=== PATIENT | male | born 2000 | race Caucasian/White ===

== ENCOUNTER 2024-05-10 22:38 | Emergency (ER) | payer SELFPAY ==
[~2024-05-10] VITALS: Ht 172.7 cm; Wt 82.0 kg
[2024-05-10 23:03] VITALS: O2SAT 99
[2024-05-10] MEDS ORDERED: PENICILLIN V POTASSIUM 250MG TABLET PO SCH (23:15)
[2024-05-10] MEDS ORDERED: AMOXICILLIN/POTASSIUM CLAVULANATE 875/125MG TAB PO NR (23:15)
[2024-05-10] MEDS ORDERED: DEXAMETHASONE 4MG/ML 1ML VIAL IM ONE (23:15)
[2024-05-10] MEDS ORDERED: KETOROLAC 30MG/ML VIAL IM ONE (23:15)
[2024-05-11 01:27] LABS: BASOPHILS % 0.7 % (0.0-2.0); EOSINOPHILS % 0.8 % (0.0-5.0); HEMATOCRIT. 42.1 % (42.0-52.0); LYMPHOCYTES % 7.8 % (20.0-50.0); MEAN CORPUSCULAR HEMOGLOBIN 30.4 pg (28.0-32.0); MEAN CORPUSCULAR HGB CONC 33.3 g/dL (31.0-37.0); MEAN CORPUSCULAR VOLUME 91.3 fL (80.0-94.0); MEAN PLATELET VOLUME 8.2 fl (7.4-10.4); MONOCYTES % 9.7 % (2.0-8.0); PLATELET 269 x1000/uL (130-400); RED BLOOD CELL COUNT 4.62 mill/uL (4.7-6.1); RED CELL DISTRIBUTION WIDTH 12.3 % (11.6-14.6)
[2024-05-11 01:39] LABS: CHLORIDE 107 mEq/L (98-107); POTASSIUM 2.9 mEq/L (3.5-5.1); SODIUM 141 mEq/L (136-145)
[2024-05-11 01:40] LABS: CALCIUM 8.6 mg/dL (8.7-10.4); CARBON DIOXIDE 28 mEq/L (21-32)
[2024-05-11 01:45] LABS: GLUCOSE 116 mg/dL (70-105); UREA NITROGEN BLOOD 14 mg/dL (9-23)
[2024-05-11] MEDS ORDERED: PENI500T MT (02:56)
[2024-05-11] MEDS: DEXAMETHASONE 4MG/ML 1ML VIAL IV ONE (03:46)
[2024-05-11] MEDS: AMPICILLIN SOD/SULBACTAM NA 3 G in SODIUM CHLORIDE 0.9% 100 ML IV SCH (03:46)
[2024-05-11] MEDS: KETOROLAC 30MG/ML VIAL IV ONE (03:47)
[2024-05-11] MEDS: DEXAMETHASONE 4MG/ML 1ML VIAL IV NR (03:51)
[2024-05-11] MEDS: KETOROLAC 30MG/ML VIAL IV NR (03:51)
[2024-05-11 03:56] VITALS: BP 131/87; PULSE 80; RESP 20; TEMP 36.83628; O2SAT 100
[2024-05-11] MEDS ORDERED: IOHEXOL-300 100 ML BOTTLE ONE (04:14)
== END 2024-05-11 05:37 | disposition home or self-care (01) ==
LOC: ER 22:38
DX: J02.9 Acute pharyngitis, unspecified (principal); R13.10 Dysphagia, unspecified; Z79.52 Long term (current) use of systemic steroids
CPT/HCPCS: 99285; 80048; 85025; 36415; 70491; 96365; 96375; Q9967; J0295; J1100; J1885; J7050; Z7610